=== PATIENT | female | born 1930 | race Caucasian/White ===

== ENCOUNTER 2016-12-31 11:19 | Inpatient (IN) | payer OTHER ==
--- NOTE | 2016-12-31 11:21 | EDPHY ---
H & P HPI/ROS: CHIEF COMPLAINT: Fall. HISTORY OF PRESENT ILLNESS: The patient is an 86-year-old female with history of CVA and hypertension who presents via EMS after falling. She does not remember much about what happened and does not remember why she fell. She does not think that she fainted. She was too weak to her herself up. She did not hit her head. She has a walker but apparently does not always use it. According to her daughter, who provided some of the history, she fell earlier this week and seems to be falling with more frequency. She denies chest pain, back pain, abdominal pain, recent sickness, diarrhea, constipation, urinary symptoms. She is anticoagulated on Eliquis. She lives with a granddaughter and has help twice weekly. REVIEW OF SYSTEMS: A ten point review of systems was performed and is negative with the exception of the items mentioned in the HPI. Source: Patient Exam Limitations: No limitations - Medical/Surgical History Other PMH: 1. Hypertension. 2. Hyponatremia. 3. CVA. 4. Atrial fibrillation. 5. Osteoarthritis. 6. Carotid artery stenosis. 7. Cataract surgery. - Social History Additional Social History: Nonsmoker, no alcohol use. Lives with granddaughter. - Physical Exam Exam: General Appearance: Alert. Vital signs reviewed. BP 198/102. Head: Normocephalic, atraumatic. Eyes: Pupils equal and round, no conjunctival injection, no discharge. Anicteric. ENT, Mouth: Mucous membranes are moist, no oropharyngeal erythema or edema. Neck: No lymphadenopathy, supple. Nontender to palpation over the cervical spine. No pain with ROM of neck/head. Respiratory: Lungs are clear to auscultation; no wheezes, rales, or rhonchi. Breath sounds distant. Thoracic: Pacer pocket normal-appearing. No rib tenderness or crepitus. Cardiovascular: Regular rate and rhythm; no murmur, rub, or gallop. Gastrointestinal: Abdomen is soft and nontender, no masses or organomegaly, bowel sounds normal. Skin: Warm and dry, no rashes on exposed skin, normal color. Back: Nontender to palpation over the thoracolumbar spine. No CVAT. Extremities: No lower extremity edema, no calf tenderness or swelling. 4th and 5th digits of right hand held in permanent flexion. Neurological: Alert and oriented to person, place, year. Moving all four extremities easily and equally. No pronator drift. PERRL EOMI. Facial expressions symmetric. Tongue midline. Ambulated with walker. Psychiatric: Normal affect. Constitutional: Initial Vital Signs Temperature (C) 37.2 C 12/31/16 11:26 Heart Rate 76 12/31/16 11:26 Respiratory Rate 16 12/31/16 11:26 Blood Pressure 202/104 H 12/31/16 11:26 O2 Sat (%) 93 12/31/16 11:26 O2 Delivery Mode Room Air Allergies/Adverse Reactions: escitalopram oxalate [From Lexapro] Allergy (Intermediate, Verified 01/28/14 08: 43) NAUSEA metoprolol [Metoprolol] Allergy (Intermediate, Verified 01/28/14 08:43) NAUSEA Home Medications: Medication Instructions Recorded Irbesartan/Hydrochlorothiazide 1 each PO DAILY 10/01/13 [Avalide 300-25 mg Tablet] Mirtazapine [Remeron] 30 mg PO DAILY 10/01/13 Omeprazole [Prilosec 20 mg] 20 mg PO DAILY 10/01/13 Potassium Cl [Klor-Con 20 meq (RX)] 20 meq PO DAILY 10/01/13 Pramipexole Di-HCl [Pramipexole 0.25 mg PO DAILY 10/01/13 Dihydrochloride] Bystolic 12/31/16 Eliquis 12/31/16 Medical Decision Making - Diagnostics EKG Interpretation: 12 lead EKG is interpreted in Trace master View by emergency department physician. Imaging Results: Imaging Impressions Head CT 12/31/16 11:49 Impression: 1. Negative. No acute intracranial hemorrhage or skull fracture. 2. Progressive atrophy and white matter disease since 2008. Comment: Findings discussed with Emergency Department physician, Alee Herrera at 1249 hours 12/31/2016. Imaging: Discussed imaging studies w/ order desk caller Radiologist ED Course/Re-evaluation: 86-year-old anticoagulated female presents after falling this morning. She has a history of hypertension and is hypertensive at 203/120. She also has a history of hyponatremia. Her daughter reports that she has had increased difficulty walking with her walker recently. An IV was established and labs ordered. Head CT ordered. 1300: Head CT results conveyed to me as negative for bleed or skull fracture by radiology. I independently reviewed the patient's CT on the PACS system. Please see Imaging section for radiologist report. Her daughter brought in the patient's medication box and the compartments for the past two days and for this morning are full. She has not taken any of her prescribed medications. She was given her Bystolic PO and her avapro PO in the ED. She was able to ambulate using a walker in the emergency department. Labs reviewed. No hyponatremia. Neuro exam is nonfocal. I do not suspect acute CVA but am concerned about persistent hypertension. 1322: Reassessed patient. Discussed results of imaging study. She is feeling well. Case Management will consult with the patient and family to ensure a proper disposition is reached. Blood pressures remained high in the emergency department. She was given her Bystolic and her Avapro, as above. She has missed her medications for the last 3 days. Her daughter tells me that she has become quite forgetful, forgets to use her walker and apparently is not taking her medications. She lives with a granddaughter. She has helped twice a week but it seems that she might need a higher level of care. 1437: Consulted with Dimple from Case Management. She reports that after talking to the patient's family and caregivers she has been falling more over the past week and likely needs a higher level of care than she is currently receiving. The patient would like to be admitted to "help her get stronger". 1450: Consulted with Dr. Barkley, hospitalist. He accepts admission. Differential Diagnosis: I considered a differential diagnosis including but not limited to hypoglycemia , infectious process, electrolyte abnormality, head injury and intoxicants. - Data Points Laboratory Results: Laboratory Results 12/31/16 11:24 12/31/16 11:24 12/31/16 12/31/16 12/31/16 13:20 11:24 11:24 WBC 6.85 10^3/uL 10^3/uL (3.80-9.50) RBC 4.71 10^6/uL 10^6/uL (4.18-5.33) Hgb 16.1 g/dL g/dL (12.6-16.3) Hct 44.8 % % (38.0-47.0) MCV 95.1 fL fL (81.5-99.8) MCH 34.2 pg H pg (27.9-34.1) MCHC 35.9 g/dL g/dL (32.4-36.7) RDW 13.4 % % (11.5-15.2) Plt Count 211 10^3/uL 10^3/uL (150-400) MPV 10.8 fL fL (8.7-11.7) Neut % (Auto) 69.3 % % (39.3-74.2) Lymph % (Auto) 21.0 % % (15.0-45.0) [place] % (Auto) 7.7 % % (4.5-13.0) Eos % (Auto) 1.0 % % (0.6-7.6) Baso % (Auto) 0.6 % % (0.3-1.7) Nucleat RBC Rel Count 0.0 % % (0.0-0.2) Absolute Neuts (auto) 4.74 10^3/uL 10^3/uL (1.70-6.50) Absolute Lymphs (auto) 1.44 10^3/uL 10^3/uL (1.00-3.00) Absolute Monos (auto) 0.53 10^3/uL 10^3/uL (0.30-0.80) Absolute Eos (auto) 0.07 10^3/uL 10^3/uL (0.03-0.40) Absolute Basos (auto) 0.04 10^3/uL 10^3/uL (0.02-0.10) Absolute Nucleated RBC 0.00 10^3/uL 10^3/uL (0-0.01) Immature Gran % 0.4 % % (0.0-1.1) Immature Gran # 0.03 10^3/uL 10^3/uL (0.00-0.10) Sodium 139 mEq/L mEq/L (134-144) Potassium 4.4 mEq/L mEq/L (3.5-5.2) Chloride 103 mEq/L mEq/L (97-110) Carbon Dioxide 24 mEq/l mEq/l (22-31) Anion Gap 12 mEq/L mEq/L (8-16) BUN 16 mg/dL mg/dL (7-23) Creatinine 0.9 mg/dL mg/dL (0.6-1.0) Estimated GFR 60 Glucose 105 mg/dL H mg/dL (70-100) Calcium 10.0 mg/dL mg/dL (8.5-10.4) Urine Color YELLOW Urine Appearance CLEAR Urine pH 6.0 (5.0-7.5) Ur Specific [place] 1.015 (1.002-1.030) Urine Protein NEGATIVE (NEGATIVE) Urine Ketones 1+ H (NEGATIVE) Urine Blood NEGATIVE (NEGATIVE) Urine Nitrate NEGATIVE (NEGATIVE) Urine Bilirubin NEGATIVE (NEGATIVE) Urine Urobilinogen NEGATIVE EU EU (0.2-1.0) Ur Leukocyte Esterase 1+ H (NEGATIVE) Urine RBC 1-3 /hpf /hpf (0-3) Urine WBC 10-15 /hpf H /hpf (0-3) Ur Epithelial Cells TRACE /lpf /lpf (NONE-1+) Urine Mucus TRACE /lpf /lpf (NONE-1+) Ur Culture Indicated? INDICATED H (NI) Urine Glucose NEGATIVE (NEGATIVE) Departure - Departure Disposition: [facility] Inpatient Acute Clinical Impression: Generalized weakness, Multiple falls, Hypertensive urgency Failure to thrive Qualifiers: Failure to thrive age range: in adult Qualified Code(s): R62.7 - Adult failure to thrive Condition: Fair Report Scribed for: Alee Herrera Report Scribed by: Kale Altman Date of Report: 12/31/16 Time of Report: 11:30 Physician Review and Approval Statement: 12/31/16 11:20 Portions of this note were transcribed by the medical dosimetrist. I, Dr. Alee Herrera, personally performed the history, physical exam, and medical decision- making; and confirmed the accuracy of the information in the transcribed note.
--- NOTE | 2016-12-31 11:29 | CPEKG ---
Heart Rate: 82 RR Interval: 732 QRSD Interval: 130 QT Interval: 408 QTC Interval: 477 QRS [place]: -76 T Wave [place]: 111 EKG Severity - ABNORMAL ECG - EKG Impression: AFIB/FLUTTER AND VENTRICULAR-PACED RHYTHM Electronically Signed By: Alee Herrera 31-Dec-2016 15:43:24
[2016-12-31 11:54] LABS: % IMMATURE GRANULYOCYTES 0.4 % (0.0-1.1); ABSOLUTE IMMATURE GRANULOCYTES 0.03 10^3/uL (0.00-0.10); ADD DIFF? NO; ADD MORPH? NO; ADD SCAN? NO; ATYPICAL LYMPHOCYTE FLAG 20 (0-99); FRAGMENT RBC FLAG 0 (0-99); HEMATOCRIT 44.8 % (38.0-47.0); HEMOGLOBIN 16.1 g/dL (12.6-16.3); LEFT SHIFT FLG 0 (0-99); LIPEMIA HEMOLYSIS FLAG 90 (0-99); MEAN CELL HEMOGLOBIN 34.2 pg (27.9-34.1); MEAN CELL HEMOGLOBIN CONCENTR. 35.9 g/dL (32.4-36.7); MEAN CELL VOLUME 95.1 fL (81.5-99.8); MEAN PLATELET VOLUME 10.8 fL (8.7-11.7); PLATELET CLUMPS FLAG 0 (0-99); PLATELET COUNT 211 10^3/uL (150-400); RED BLOOD CELL COUNT 4.71 10^6/uL (4.18-5.33); RED CELL DISTRIBUTION WIDTH 13.4 % (11.5-15.2)
[2016-12-31 11:59] LABS: ANION GAP 12 mEq/L (8-16); CARBON DIOXIDE 24 mEq/l (22-31); CHLORIDE 103 mEq/L (97-110); CREATININE 0.9 mg/dL (0.6-1.0); GLOMERULAR FILTRATION RATE 60; GLUCOSE 105 mg/dL (70-100); POTASSIUM 4.4 mEq/L (3.5-5.2); SODIUM 139 mEq/L (134-144)
[2016-12-31] MEDS ORDERED: IRBESARTAN 150 MG TAB PO SCH (12:30)
[2016-12-31 13:30] LABS: COLOR YELLOW; LEUKOCYTE ESTERASE,URINE 1+ (NEGATIVE); NITRITE,URINE NEGATIVE (NEGATIVE)
[2016-12-31 13:36] LABS: MUCUS TRACE /lpf (NONE-1+)
[2016-12-31] MEDS ORDERED: LABETALOL HCL 50 MG/10 ML SYR IVP ONE (15:34)
[2016-12-31] MEDS ORDERED: ONDANSETRON 4 MG/2 ML VIAL IVP PRN (15:43)
[2016-12-31] MEDS ORDERED: ACETAMINOPHEN 325 MG TAB PO PRN (15:43)
[2016-12-31] MEDS ORDERED: NS 1,000 ML IV SCH (15:45)
--- NOTE | 2016-12-31 15:53 | PDGENHP ---
History and Physical History and Physical: HISTORY AND PHYSICAL CC: Brought in to the ER after a fall unable to get up at home HISTORY: This patient is an 86-year-old woman who lives in a private home. She has a history of falls and fracture in the past. Her daughter who is here reports that the patient has had more falls and fell a couple weeks ago. This morning at 3 o'clock the granddaughter who lives with the patient arrived home from work and found the patient awake but on the floor and unable to get up. She assisted the patient up to her feet and back to bed. There do not appear to be any injury or illness that the granddaughter could detect. They both went to asleep but when the granddaughter got up at 7 o'clock this morning she again found the patient on the floor in the kitchen. Again did not seem to be symptoms of illness and there was not evidence of injury but the patient was unable to get off the floor. The patient was then brought into the emergency room where she is being evaluated. The patient herself has poor memory and so a lot of this history I am getting from the daughter who is here with her. The patient does not recall feeling ill or sick in any way, having palpitations chest pain lightheadedness dizziness. However she cannot recall at all how she ended up on the floor neither these 2 occasions today. She denies any discomfort at all does not feel dizzy or nauseous. As far as the daughter knows the patient has had no symptoms of illness and nothing reported by the granddaughter. The patient's pill counter boxes have come here with her today. Looking at them with the daughter is clear that the patient has not taken any medications for the last 3 days including today. In terms of her medication list there are some cardiac medicines. She also has an antidepressant which is being dosed reduced gradually over the last several months. She stop Paxil a few months ago as well. Neither the patient or daughter have noticed any worsening depression, anxiety, insomnia, or appetite. Her daughter does mention that she thinks the patient's urine has looked dark for the last couple of days as she saw some in the commode ROS: A comprehensive 10 system review is attempted and revealed no other significant findings, but given the patient's memory and this may be less accurate than desired. PAST MEDICAL HISTORY: Gait instability with falls and hip fracture Osteoporosis Dementia gradually worsening Atrial fibrillation and flutter, status post pacemaker Diastolic dysfunction of left ventricle Left ventricular hypertrophy Mitral regurgitation Pulmonary hypertension Systemic hypertension Depression Osteoarthritis Question of stroke FAMILY MEDICAL HISTORY: Her parents both at fairly old ages in this late 70s in the 90s No other illness she is aware of SOCIAL HISTORY: She lives in a private home with her granddaughter who is a 17-year-old. The granddaughter works during the day and into the night. Patient is therefore alone a lot of the time. She has no use of alcohol tobacco or street drugs. She does use a walker. She does have meals brought in by an outside agency. As mentioned above it appears that there are medication compliance issues, and she does not appear to have taken any of her medicines for the last 3 days at home. She is very emphatic that she wants to do not resuscitate order and talking to her and her daughter is very clear that they both understand what this order means and when and why it would be used or not used. MEDICATIONS: I am waiting for her medicine list to be reconciled by clinical pharmacist. There is beta-alina, no anticoagulant, but in anti-platelet agent and antidepressant are present on the list she brings in. Also there is lisinopril. Again she appears to not taking these for a few days. She has no medicine allergies PHYSICAL EXAMINATION: Vital Signs: Blood pressures are severely elevated both systolic and diastolic , and she has good rate control for her AFib otherwise unremarkable Chemistry Research Assistant: rate controlled atrial flutter in the 70s. Examination: General: alert; she does not know the day of the week the date of the month or the year. She knows she is in [place] and that Sergio anvarro is the president. She knows why she is here and generally is fairly well oriented other than time. 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 Nothing that looks like a stroke. ASSESSMENT: 1- REPEATED FALLS AT HOME OF UNCERTAIN NATURE THE PATIENT DOES NOT RECALL THEM, 2 FALLS TODAY 2- SEVERE GAIT INSTABILITY 3- UNCONTROLLED SEVERE HYPERTENSION, WITHOUT HAVING TAKEN ANY MEDICINE FOR AT LEAST 3 DAYS 4- QUESTION OF POSSIBLE DEHYDRATION WITH CONCENTRATED SOUND URINE AT HOME 5- QUESTION OF POSSIBLE URINARY TRACT INFECTION WITH PYURIA AND WORSENING BALANCE AND MEMORY AT HOME THOUGH NO URINARY SYMPTOMS DIRECTLY 6- KNOWN CARDIAC DISEASE INCLUDES RATE CONTROLLED ATRIAL FLUTTER, PACEMAKER IN PLACE, MITRAL REGURGITATION, LVH AND DIASTOLIC DYSFUNCTION 7- KNOWN HISTORY OF PULMONARY HYPERTENSION 8- INABILITY TO SAFELY CARE FOR HERSELF AT HOME WITH KNOWN DEMENTIA, FREQUENT FALLS, NOT TAKING HER MEDICINES, UNCONTROLLED HYPERTENSION, ETC PLANS: -patient will be admitted to the hospital on inpatient basis as will be not safe to send her home within 48 hours -Will have her pacer interrogated to make sure that there was no cardiac cause of any syncope -will hydrate her gently, will check orthostatic vital signs in the morning -resume her oral blood pressure medicines as usual and add other medicine as needed for adequate control of blood pressure -fall risk precautions, physical occupational therapy -given her pyuria and her worsening overall function at home will give empiric antibiotic while waiting for culture though she may not have infection as there is no bladder symptoms -case management evaluation; the daughter is feeling like the patient will need a higher level of supervision and certainly this is likely at least in the short run. Could be hope to that with hydration, adequate control of blood pressure, treatment of possible urine infection, and physical therapies she might be able to do better. However clearly living alone may be prohibitive in terms of safety. -DNR per the patient's wishes -pharmacologic DVT prophylaxis here I have reviewed the patient's case in detail with Dr. Froylan Hendricks I have reviewed the patient's past medical records as part of this assessment, including previous hospital admission records and outpatient laboratory data
[2016-12-31] MEDS: LABETALOL HCL 50 MG/10 ML SYR IVP PRN (17:13)
[2016-12-31] MEDS: CEFUROXIME AXETIL 250 MG TAB PO SCH (20:32)
[2016-12-31] MEDS: MIRTAZAPINE 30 MG TAB PO SCH (20:32)
[2016-12-31] MEDS: POTASSIUM CL 20 MEQ TAB PO SCH (20:32)
[2016-12-31] MEDS: PRAVASTATIN SODIUM 20 MG TAB PO SCH (20:33)
[2016-12-31] MEDS: APIXABAN 2.5 MG TAB PO SCH (20:33)
[2017-01-01 06:11] LABS: % IMMATURE GRANULYOCYTES 0.3 % (0.0-1.1); ABSOLUTE IMMATURE GRANULOCYTES 0.02 10^3/uL (0.00-0.10); ADD DIFF? NO; ADD MORPH? NO; ADD SCAN? NO; ATYPICAL LYMPHOCYTE FLAG 0 (0-99); FRAGMENT RBC FLAG 0 (0-99); HEMATOCRIT 38.9 % (38.0-47.0); HEMOGLOBIN 13.2 g/dL (12.6-16.3); LEFT SHIFT FLG 0 (0-99); LIPEMIA HEMOLYSIS FLAG 90 (0-99); MEAN CELL HEMOGLOBIN 31.7 pg (27.9-34.1); MEAN CELL HEMOGLOBIN CONCENTR. 33.9 g/dL (32.4-36.7); MEAN CELL VOLUME 93.5 fL (81.5-99.8); MEAN PLATELET VOLUME 10.4 fL (8.7-11.7); PLATELET CLUMPS FLAG 10 (0-99); PLATELET COUNT 191 10^3/uL (150-400); RED BLOOD CELL COUNT 4.16 10^6/uL (4.18-5.33); RED CELL DISTRIBUTION WIDTH 13.2 % (11.5-15.2)
[2017-01-01 07:11] LABS: ANION GAP 9 mEq/L (8-16); CALCIUM 9.5 mg/dL (8.5-10.4); CARBON DIOXIDE 24 mEq/l (22-31); CHLORIDE 105 mEq/L (97-110); CREATININE 0.9 mg/dL (0.6-1.0); GLOMERULAR FILTRATION RATE 60; GLUCOSE 87 mg/dL (70-100); POTASSIUM 3.9 mEq/L (3.5-5.2); SODIUM 138 mEq/L (134-144)
[2017-01-01] MEDS ORDERED: HYDROCHLOROTHIAZIDE 25 MG TAB PO SCH (09:00)
[2017-01-01] MEDS ORDERED: ENOXAPARIN 40 MG/0.4 ML SYR SC SCH (09:00)
[2017-01-01] MEDS: HYDROCHLOROTHIAZIDE 12.5 MG CAP PO SCH (09:54)
[2017-01-01] MEDS: IRBESARTAN 150 MG TAB PO SCH (09:54)
[2017-01-01] MEDS: buPROPion XL 150 MG TAB PO SCH (09:54)
[2017-01-01] MEDS: PRAMIPEXOLE 0.25 MG TAB PO SCH (09:54)
[2017-01-01] MEDS: NEBIVOLOL HCL 5 MG TAB PO SCH (09:54)
[2017-01-01] MEDS: APIXABAN 2.5 MG TAB PO SCH ×2 (09:55→19:33)
[2017-01-01] MEDS: PANTOPRAZOLE SODIUM 40 MG TAB PO SCH (09:55)
[2017-01-01] MEDS: CEFUROXIME AXETIL 250 MG TAB PO SCH ×2 (09:55→19:33)
--- NOTE | 2017-01-01 09:57 | HOSPPROG ---
Hospitalist Progress Note Assessment/Plan: Patient is an 86 y/o who lives independently and has been falling. The grand daughter who lives w the patient found her on the floor and unable to get up. She appeared not to be injured and was assisted back to bed. The patient got out of bed again and fell. She was brought to the ER for further evaluation. Also, it's not clear the patient has been taking her medications. She stopped Paxil a few months ago (this was weaned off). Today is my first encounter with the patient, chart reviewed. *gait instability w repeated falls patient doesn't recall them CT of head shows atrophy but nothing acute PT and OT to see *Uncontrolled HTN resume home medications *Dehydration -eating and drinking well *Aflutter/atrial fibrillation/pacer pacer interrogated/sensing and capturing on Eliquis hx of LVH *concern for UTI started on treatment/Ceftin bid *pulmonary htn *concern of patient being unable to care fo herself -has underlying dementia -has residual symptoms from a previous stroke *Code status -DNR *Plan: evaluation by PT, OT and ST/SNF vs going home with home care Subjective: Haydee has no complaints. Feeling well. Objective: Vital Signs Temp Pulse Resp BP Pulse Ox 36.3 C 84 14 150/91 H 93 01/01/17 07:55 01/01/17 07:55 12/31/16 23:46 01/01/17 07:55 01/01/17 07:55 Laboratory Results 01/01/17 05:45 01/01/17 05:45 12/31/16 01/01/17 01/02/17 05:59 05:59 05:59 Output Total 350 Balance -350 - Physical Exam Constitutional: no apparent distress, appears nourished, not in pain Eyes: PERRL Ears, Nose, Mouth, Throat: hearing normal Cardiovascular: regular rate and rhythym, no murmur, rub, or gallop Respiratory: no respiratory distress Gastrointestinal: normoactive bowel sounds Skin: warm Musculoskeletal: no muscle tenderness Neurologic: AAOx3, other (answers questions appropriately, but slow to answer), No facial droop Psychiatric: not encephalopathic, thought process linear, flat affect ICD10 Worksheet Patient Problems: Problems Problem Status Onset Failure to thrive Acute Generalized weakness Acute Hypertensive urgency Acute Multiple falls Acute Afib - Atrial fibrillation Active Renal failure Acute
[2017-01-01] MEDS: PRAVASTATIN SODIUM 20 MG TAB PO SCH (19:33)
[2017-01-01] MEDS: MIRTAZAPINE 30 MG TAB PO SCH (19:33)
[2017-01-01] MEDS: POTASSIUM CL 20 MEQ TAB PO SCH (19:33)
[2017-01-01] MEDS: LABETALOL HCL 50 MG/10 ML SYR IVP PRN (21:20)
[2017-01-02] MEDS: PANTOPRAZOLE SODIUM 40 MG TAB PO SCH (10:03)
[2017-01-02] MEDS: buPROPion XL 150 MG TAB PO SCH (10:04)
[2017-01-02] MEDS: HYDROCHLOROTHIAZIDE 12.5 MG CAP PO SCH (10:04)
[2017-01-02] MEDS: PRAMIPEXOLE 0.25 MG TAB PO SCH (10:04)
[2017-01-02] MEDS: NEBIVOLOL HCL 5 MG TAB PO SCH (10:05)
[2017-01-02] MEDS: APIXABAN 2.5 MG TAB PO SCH ×2 (10:05→20:22)
[2017-01-02] MEDS: CEFUROXIME AXETIL 250 MG TAB PO SCH (10:05)
[2017-01-02] MEDS: IRBESARTAN 150 MG TAB PO SCH (10:06)
--- NOTE | 2017-01-02 11:55 | HOSPPROG ---
Hospitalist Progress Note Assessment/Plan: Patient is an 86 y/o who lives independently and has been falling. The grand daughter who lives w the patient found her on the floor and unable to get up. She appeared not to be injured and was assisted back to bed. The patient got out of bed again and fell. She was brought to the ER for further evaluation. Also, it's not clear the patient has been taking her medications. She stopped Paxil a few months ago (this was weaned off). Today is my first encounter with the patient, chart reviewed. *gait instability w repeated falls patient doesn't recall them CT of head shows atrophy but nothing acute PT and OT to see *Uncontrolled HTN resume home medications may need increase *Dehydration -eating and drinking well *Aflutter/atrial fibrillation/pacer pacer interrogated/sensing and capturing on Eliquis hx of LVH *concern for UTI started on treatment/Ceftin bid cx negative will DC *pulmonary htn *concern of patient being unable to care fo herself -has underlying dementia -has residual symptoms from a previous stroke *Code status -DNR *Plan: evaluation by PT, OT and ST/SNF vs going home with home care plan for possible DC to [facility] in the am Subjective: Feeling ok. Tired, no other issues. Not feeling strong. Objective: Vital Signs Temp Pulse Resp BP Pulse Ox 37.0 C 99 16 122/84 H 94 01/02/17 11:33 01/02/17 11:33 01/02/17 11:33 01/02/17 11:33 01/02/17 11:33 Laboratory Results 01/01/17 05:45 01/01/17 05:45 01/01/17 01/02/17 01/03/17 05:59 05:59 05:59 Output Total 350 0 Balance -350 0 - Physical Exam Constitutional: no apparent distress, appears nourished, not in pain Eyes: PERRL, anicteric sclera, EOMI Ears, Nose, Mouth, Throat: moist mucous membranes, hearing normal, ears appear normal Cardiovascular: No JVD, No tachycardia, No edema Respiratory: no respiratory distress, no rales or rhonchi, reduced air movement Gastrointestinal: No tenderness, No ascites, No guarding Skin: warm, normal color, No erythema Musculoskeletal: muscular tenderness, abnormal gait, generalized weakness Psychiatric: not anxious, poor insight, poor judgement, poor memory ICD10 Worksheet Patient Problems: Problems Problem Status Onset Afib - Atrial fibrillation Active Renal failure Acute Generalized weakness Acute Failure to thrive Acute Multiple falls Acute Hypertensive urgency Acute
[2017-01-02] MEDS: MIRTAZAPINE 30 MG TAB PO SCH (20:22)
[2017-01-02] MEDS: POTASSIUM CL 20 MEQ TAB PO SCH (20:22)
[2017-01-02] MEDS: PRAVASTATIN SODIUM 20 MG TAB PO SCH (20:22)
[2017-01-03] MEDS: APIXABAN 2.5 MG TAB PO SCH (08:29)
[2017-01-03] MEDS: PRAMIPEXOLE 0.25 MG TAB PO SCH (08:29)
[2017-01-03] MEDS: HYDROCHLOROTHIAZIDE 12.5 MG CAP PO SCH (08:29)
[2017-01-03] MEDS: buPROPion XL 150 MG TAB PO SCH (08:29)
[2017-01-03] MEDS: NEBIVOLOL HCL 5 MG TAB PO SCH (08:29)
[2017-01-03] MEDS: IRBESARTAN 150 MG TAB PO SCH (08:29)
[2017-01-03] MEDS: PANTOPRAZOLE SODIUM 40 MG TAB PO SCH (08:30)
[2017-01-03 08:32] VITALS: RESP 16
--- NOTE | 2017-01-03 09:42 | PDIAF ---
- Diagnosis Diagnosis: weakness Code Status: Do Not Resuscitate - Medication Management Discharge Medications: Medications to Continue on Transfer Apixaban [Eliquis] 2.5 mg PO BID 12/31/16 [Last Taken Unknown] Bupropion HCl [Wellbutrin Xl] 150 mg PO DAILY 12/31/16 [Last Taken Unknown] Irbesartan/Hydrochlorothiazide [Irbesartan-Hctz 150-12.5 mg Tb] 1 each PO DAILY 12/31/16 [Last Taken 12/31/16] Mirtazapine [Remeron] 60 mg PO HS 12/31/16 [Last Taken Unknown] Nebivolol HCl [Bystolic 5 mg (*)] 5 mg PO DAILY 12/31/16 [Last Taken 12/31/16] Omeprazole [Prilosec 20 mg] 20 mg PO DAILY 12/31/16 [Last Taken Unknown] Potassium Cl [Klor-Con 20 meq (*)] 20 meq PO HS 12/31/16 [Last Taken Unknown] Pramipexole Di-HCl [Pramipexole Dihydrochloride] 0.25 mg PO DAILY 12/31/16 [ Last Taken Unknown] Pravastatin Sodium 20 mg PO HS 12/31/16 [Last Taken Unknown] Acetaminophen [Tylenol 325mg (*)] 650 mg PO Q4HRS PRN #0 tab 01/03/17 [Last Taken Unknown] Discharge Medications: Refer to the Discharge Home Medication list for PRN reason. PICC Care - Routine: N/A - Orders Services needed: Registered Nurse, Physical Therapy, Occupational Therapy - Follow Up Care Current Providers and Referrals: Cesar Cohen MD [Primary Care Provider] - As per Instructions
[2017-01-03 10:55] VITALS: BP 146/82; PULSE 82; TEMP 97.4; O2SAT 94
--- NOTE | 2017-01-03 19:51 | GDS ---
[f rep st] DISCHARGE SUMMARY DISCHARGE DIAGNOSES: 1. Generalized weakness. 2. Gait instability with mechanical fall. 3. Uncontrolled hypertension. 4. Dehydration. 5. History of atrial flutter. 6. History of pulmonary hypertension. 7. Adult failure to thrive. STUDIES AND PROCEDURES DONE: CT of the head. PHYSICAL EXAMINATION: GENERAL: The patient is alert. VITAL SIGNS: Afebrile 36.3. Pulse is 82, r espiratory rate 16. Blood pressure is 146/82. She is saturating 94% on room air. I have seen and evaluated the patient on the day of discharge. HOSPITAL COURSE: The patient is an 86-year-old female, who lives independently, presented to the ergency room after suffering multiple mechanical falls. She was evaluated and diagnosed with: 1. Gait instability with repeat falls. During this hospital course the patient was consulted on by Physical therapy and Occupational therapy. It was felt that it was appropriate for her to go to [facility] for rehabilitation and strengthening. 2. Uncontrolled hypertension. Her home medications have been resumed and her blood pressure is sta ble. She may need increased antihypertensive medications in the outpatient setting which she will d efer and follow up with her primary care physician. 3. Dehydration. This has resolved with fluid hydration. The patient is currently eating and drink ing well and does not appear to be dehydrated any longer. 4. History of atrial flutter. She does have a pacemaker in place. I have continued her Eliquis an d no further intervention is warranted. 5. Adult failure to thrive. The patient again will be discharged to rehabilitation for further corie luation and strengthening. I have reviewed the patient's care with Dr. Tayo Barkley at the time of d isposition. DISCHARGE MEDICATIONS: Please refer to EMR form. I have not adjusted the patient's previously pres cribed home medications to the best of my knowledge. Followup will be with her primary care michael coppola, Dr. Cesar Cohen. I spent greater than 35 minutes in the care, coordination, and management of t he patient's disposition. /[id number]/MODL
== END 2017-01-03 12:23 | DRG 641 ==
LOC: EDUNIT# → F3E 17:50
PROVIDERS: ADMIT Internal Medicine; ATTEND Internal Medicine
DX: R62.7 Adult failure to thrive (principal); E86.0 Dehydration; I10 Essential (primary) hypertension; Z91.81 History of falling; R29.6 Repeated falls; I48.92 Unspecified atrial flutter; R26.9 Unspecified abnormalities of gait and mobility; M81.0 Age-related osteoporosis without current pathological fracture; F03.90 Unspecified dementia, unspecified severity, without behavioral disturbance, psychotic disturbance, mood disturbance, and anxiety; I34.0 Nonrheumatic mitral (valve) insufficiency; Z95.0 Presence of cardiac pacemaker; Z66 Do not resuscitate
CPT/HCPCS: 92523-GN; 97116-GP; 97161-GP; 97166-GO; 97535-GO; G8978-GP-CJ; G8979-GP-CI; G8987-GO-CK; G8988-GO-CJ; G9168-GN-CK; G9169-GN-CJ

== ENCOUNTER → 2017-02-11 | Outpatient (CLI) | payer OTHER | LOC: FIMAGING 15:42 | PROVIDERS: ATTEND Internal Medicine | DX: Z11.1 Encounter for screening for respiratory tuberculosis (principal); R76.11 Nonspecific reaction to tuberculin skin test without active tuberculosis; I51.7 Cardiomegaly; I25.10 Atherosclerotic heart disease of native coronary artery without angina pectoris ==

== ENCOUNTER 2018-06-14 15:12 | Emergency (ER) | payer OTHER ==
--- NOTE | 2018-06-14 15:49 | EDPHY ---
H & P Stated Complaint: [facility] fall Time Seen by Provider: 06/14/18 15:42 HPI/ROS: CHIEF COMPLAINT: Mechanical fall, weakness HISTORY OF PRESENT ILLNESS: The patient has a history of dementia and is referred to the emergency department from her senior care. She reportedly had a fall. The patient does not believe she struck her head. The patient is anticoagulated for atrial fibrillation according to her records. The patient currently denies any headache. Her history of dementia does limit our ability to obtain meaningful history. The patient denies any fever, cough or congestion. She denies any acute painful complaints. REVIEW OF SYSTEMS: A comprehensive 10 point review of systems is otherwise negative aside from elements mentioned in the history of present illness. Source: Patient Exam Limitations: No limitations - Personal History Tetanus Vaccine Date: 2001 - Medical/Surgical History Hx Asthma: No Hx Chronic Respiratory Disease: No Hx Diabetes: No Hx Cardiac Disease: Yes Hx Renal Disease: No Hx Cirrhosis: No Hx Alcoholism: No Hx HIV/AIDS: No Hx Splenectomy or Spleen Trauma: No Other PMH: Hypertension, Hyponatremia,CVA, Atrial fibrillation, paced, Osteoarthritis, Carotid artery stenosis, Cataract surgery, anemia, dementia, MDD , RLL, heart failure, GERD, OA, - Social History Smoking Status: Never smoked - Physical Exam Exam: General Appearance: Elderly female, no acute distress Head: Atraumatic Eyes: Pupils equal, round, reactive ENT, Mouth: No hemotympanum, no oral trauma Neck: Nontender, trachea midline Respiratory: No chest wall tender, subcutaneous air, lungs clear bilaterally Cardiovascular: Regular rate and rhythm Abdomen: Abdomen is soft and nontender, pelvis stable Skin: No lacerations, No abrasion Back: No midline T/L/S pain Extremities: Nontender, full range of motion Neurological: Alert and oriented x1, globally weak. Constitutional: Initial Vital Signs Temperature (C) 36.6 C 06/14/18 15:17 Heart Rate 76 06/14/18 15:17 Respiratory Rate 16 06/14/18 15:17 Blood Pressure 163/96 H 06/14/18 15:17 O2 Sat (%) 94 06/14/18 15:17 O2 Delivery Mode Room Air Allergies/Adverse Reactions: escitalopram oxalate [From Lexapro] Allergy (Intermediate, Verified 01/28/14 08: 43) NAUSEA metoprolol [Metoprolol] Allergy (Intermediate, Verified 01/28/14 08:43) NAUSEA Home Medications: Medication Instructions Recorded Apixaban [Eliquis] 2.5 mg PO BID 12/31/16 Bupropion HCl [Wellbutrin Xl] 150 mg PO DAILY 12/31/16 Irbesartan/Hydrochlorothiazide 1 each PO DAILY 12/31/16 [Irbesartan-Hctz 150-12.5 mg Tb] Mirtazapine [Remeron] 60 mg PO HS 12/31/16 Nebivolol HCl [Bystolic 5 mg (*)] 5 mg PO DAILY 12/31/16 Omeprazole [Prilosec 20 mg] 20 mg PO DAILY 12/31/16 Potassium Cl [Klor-Con 20 meq (*)] 20 meq PO HS 12/31/16 Pramipexole Di-HCl [Pramipexole 0.25 mg PO DAILY 12/31/16 Dihydrochloride] Pravastatin Sodium 20 mg PO HS 12/31/16 Acetaminophen [Tylenol 325mg (*)] 650 mg PO Q4HRS PRN #0 tab 01/03/17 Medical Decision Making - Diagnostics EKG Interpretation: EKG: Complete interpretation has been separately recorded in the [facility] archive. Summary impression: Paced rhythm, rate 82, underlying atrial fibrillation ED Course/Re-evaluation: The patient presents to the ED for reported global weakness which appears to be increased after a fall earlier today. While the patient had no obvious signs of head trauma she is 88, has a history of dementia and is anticoagulated. A head CT scan was performed to assess for intracranial hemorrhage. The patient is hemodynamically stable upon arrival. She is in a paced rhythm with a rate of 82. The patient has no midline cervical spine tenderness. She has a benign abdominal examination. She has no respiratory complaints. Aside from her dementia the patient is neurologically intact. The patient's head CT scan demonstrates no evidence of an intracranial hemorrhage or fracture. The patient's laboratory studies are unremarkable. She denies any urinary complaints. The patient has been medically cleared for evidence of a significant injury or metabolic derangement. She has no evidence of an arrhythmia or hemodynamic instability. There is no evidence of an anemia The patient will be discharged back to her senior care in stable condition. Differential Diagnosis: Differential diagnosis considered includes intracranial hemorrhage, dehydration , metabolic abnormality, skull fracture, arrhythmia, critical anemia - Data Points Laboratory Results: Laboratory Results 06/14/18 15:00 06/14/18 15:00 06/14/18 06/14/18 15:00 15:00 WBC 9.45 10^3/uL 10^3/uL (3.80-9.50) RBC 4.56 10^6/uL 10^6/uL (4.18-5.33) Hgb 14.5 g/dL g/dL (12.6-16.3) Hct 42.3 % % (38.0-47.0) MCV 92.8 fL fL (81.5-99.8) MCH 31.8 pg pg (27.9-34.1) MCHC 34.3 g/dL g/dL (32.4-36.7) RDW 13.8 % % (11.5-15.2) Plt Count 199 10^3/uL 10^3/uL (150-400) MPV 11.1 fL fL (8.7-11.7) Neut % (Auto) 72.9 % % (39.3-74.2) Lymph % (Auto) 20.5 % % (15.0-45.0) [place] % (Auto) 5.7 % % (4.5-13.0) Eos % (Auto) 0.4 % L % (0.6-7.6) Baso % (Auto) 0.3 % % (0.3-1.7) Nucleat RBC Rel Count 0.0 % % (0.0-0.2) Absolute Neuts (auto) 6.88 10^3/uL H 10^3/uL (1.70-6.50) Absolute Lymphs (auto) 1.94 10^3/uL 10^3/uL (1.00-3.00) Absolute Monos (auto) 0.54 10^3/uL 10^3/uL (0.30-0.80) Absolute Eos (auto) 0.04 10^3/uL 10^3/uL (0.03-0.40) Absolute Basos (auto) 0.03 10^3/uL 10^3/uL (0.02-0.10) Absolute Nucleated RBC 0.00 10^3/uL 10^3/uL (0-0.01) Immature Gran % 0.2 % % (0.0-1.1) Immature Gran # 0.02 10^3/uL 10^3/uL (0.00-0.10) Sodium 137 mEq/L mEq/L (135-145) Potassium 3.4 mEq/L mEq/L (3.3-5.0) Chloride 95 mEq/L L mEq/L (97-110) Carbon Dioxide 30 mEq/l mEq/l (22-31) Anion Gap 12 mEq/L mEq/L (8-16) BUN 24 mg/dL H mg/dL (7-23) Creatinine 0.9 mg/dL mg/dL (0.6-1.0) Estimated GFR 59 Glucose 116 mg/dL H mg/dL (70-100) Calcium 9.8 mg/dL mg/dL (8.5-10.4) Medications Given: Discontinued Medications Sodium Chloride (Ns) 1,000 mls @ 0 mls/hr IV EDNOW ONE; Wide Open PRN Reason: Protocol Stop: 06/14/18 15:53 Last Admin: 06/14/18 16:34 Dose: 1,000 mls Departure - Departure Disposition: Home, Routine, Self-Care Clinical Impression: Multiple falls, Dementia, Atrial fibrillation Condition: Good Instructions: A-fib (Atrial Fibrillation) (ED) Additional Instructions: 1. The workup in the emergency department today demonstrates no evidence of a head injury or laboratory abnormality. 2. Please follow up with your regular physician as scheduled. 3. Please return to the ED for acute pain, fever, vomiting or other concerns.
[2018-06-14] MEDS ORDERED: NS 1,000 ML IV ONE (15:52)
[2018-06-14 16:45] LABS: PLATELET COUNT 199 10^3/uL (150-400)
--- NOTE | 2018-06-14 16:52 | CPEKG ---
Test Reason : OPEN Blood Pressure : / mmHG Vent. Rate : 082 BPM Atrial Rate : 157 BPM P-R Int : 072 ms QRS Dur : 156 ms QT Int : 455 ms P-R-T Axes : 071 -76 092 degrees QTc Int : 532 ms Afib/flut and V-paced complexes Confirmed by Lucius Platt ([id number]) on 06/14/2018 4:51:55 PM Referred By: Confirmed By:Lucius Platt
[2018-06-14 17:48] VITALS: BP 149/89
== END 2018-06-14 17:48 | disposition home or self-care (01) ==
LOC: EDUNIT#
DX: R53.1 Weakness (principal); E86.9 Volume depletion, unspecified; F03.90 Unspecified dementia, unspecified severity, without behavioral disturbance, psychotic disturbance, mood disturbance, and anxiety; I48.91 Unspecified atrial fibrillation; W19.XXXA Unspecified fall, initial encounter; Y92.129 Unspecified place in nursing home as the place of occurrence of the external cause; Z91.81 History of falling; Z79.01 Long term (current) use of anticoagulants

== ENCOUNTER 2018-10-20 15:16 | Inpatient (IN) | payer OTHER ==
[2018-10-20] MEDS ORDERED: FAMOTIDINE 20 MG/NACL 50 ML IV ONE (15:20)
[2018-10-20] MEDS ORDERED: ONDANSETRON 4 MG/2 ML VIAL IVP ONE (15:20)
[2018-10-20] MEDS ORDERED: NS 500 ML IV ONE (15:20)
[2018-10-20 15:50] LABS: PLATELET COUNT 183 10^3/uL (150-400)
--- NOTE | 2018-10-20 16:15 | EDPHY ---
H & P Time Seen by Provider: 10/20/18 15:18 HPI/ROS: HPI Nausea. Not feeling well. 88-year-old female by private vehicle with her mother. This patient reports that she woke up this morning not feeling well. She describes this as feeling nauseous and not having an appetite. She has not vomited. She denies fever. She denies cough. No myalgias or arthralgias. She denies any significant abdominal pain. She reports her last bowel movement was 2 days ago. She describes this as normal. No bloody or melenic stool. Please see review of systems for further details. ROS: Constitutional: No fever, no chills. As above. Eyes: No discharge. No changes in vision. ENT: No sore throat. No nasal congestion or rhinorrhea. Respiratory: No cough. No shortness of breath. Cardiac: No chest pain, no palpitations. Gastrointestinal: No abdominal pain, no vomiting, no diarrhea. As above. Genitourinary: No hematuria. No dysuria or increased frequency with urination. Musculoskeletal: No back pain. No neck pain. No myalgias or arthralgias. Skin: No rashes. Neurological: No headache. No focal weakness or altered sensation. Past medical history: Hypertension, hyponatremia, CVA, atrial fibrillation, pacemaker, carotid artery stenosis, osteoarthritis, cataract surgery, dementia, anemia, heart failure, RLL. Primary care physician is Dr. Cesar Cohen. Social history: Nonsmoker. She is here with her daughter who is actively involved with her care. No alcohol. She resides at the [facility]. She gets around by wheelchair. She requires assistance for transfer. Physical Exam: General Appearance: Alert, pleasant 88-year-old female, no distress. This patient is responding to questions appropriately and in full sentences. This patient appears well-hydrated and well-nourished. Head: Normocephalic atraumatic. Eyes: Pupils equal and round no pallor or injection. No lid edema, erythema or injection. ENT, Mouth: Mucous membranes are moist. The pharyngeal tissues are unremarkable. No edema or swelling. No asymmetry suggestive of abscess. No erythema or exudates. Respiratory: There are no retractions, lungs are clear to auscultation anteriorly with good air movement bilaterally. Cardiovascular: Regular rate and rhythm. No murmur appreciated. Gastrointestinal: Abdomen is soft and nontender, no masses, bowel sounds normal. No focal tenderness at McBurney's point. No Gil sign. Neurological: Motor sensory function is grossly intact. Cranial nerves are normal. Cerebellar function is intact. Skin: Warm and dry, no rashes. Musculoskeletal: Neck is supple and nontender. Extremities are symmetrical. All joints range without pain or impingement. Psychiatric: No agitation. No depression. Database: EKG: EKG time is 4:46 p.m.; EKG shows a sinus rhythm versus atrial fibrillation versus atrial flutter with underlying ventricular paced complexes, rate of 81. There are no ST-T wave changes indicative of ischemic or injury pattern. No evidence of right heart strain. Interpreted by me. Imaging: Chest x-ray AP portable; chronic cardiomegaly. No evidence of infiltrate or pneumothorax. No acute cardiopulmonary disease process noted. Interpreted by me. Procedures: Emergency department course: Triage vital signs reviewed. She is afebrile. She is hypertensive. Vital signs are otherwise normal. On reassessment at 4:15 p.m., blood pressure is now 124/97. IV was placed. She was started on IV normal saline with 500 cc to be given over the next hour. She will be given 4 mg of IV Zofran and 20 mg of IV Pepcid for nausea. EKG obtained and reviewed by myself. 5:40 p.m., the patient was re-evaluated. Her daughter is present in the room. She is currently receiving IV Rocephin for urinary tract infection. Her workup outside of her urinalysis was otherwise unremarkable. I discussed results of her workup and diagnosis with her and her daughter. The patient is fragile and her daughter does not feel comfortable with her going home. I discussed observation admission with both the patient and her daughter. They endorse. Hospitalist paged. 5:50 p.m., spoke with on-call hospitalist. Case discussed in detail. Patient accepted for admission to the hospitalist service in stable condition. Differential Diagnosis: The differential diagnosis on this patient includes but is not limited to viral syndrome, acute coronary syndrome, pneumonia, urinary tract infection. This represents a partial list of diagnoses considered. These considerations are based on history, physical exam, past history, reassessment and diagnostic testing. Smoking Status: Never smoked Constitutional: Initial Vital Signs Temperature (C) 36.9 C 10/20/18 15:24 Heart Rate 87 10/20/18 15:24 Respiratory Rate 16 10/20/18 15:24 Blood Pressure 194/112 H 10/20/18 15:24 O2 Sat (%) 95 10/20/18 15:24 O2 Delivery Mode Room Air Allergies/Adverse Reactions: escitalopram oxalate [From Lexapro] Allergy (Intermediate, Verified 10/20/18 15: 22) NAUSEA metoprolol [Metoprolol] Allergy (Intermediate, Verified 10/20/18 15:22) NAUSEA Home Medications: Medication Instructions Recorded Apixaban [Eliquis] 2.5 mg PO BID 12/31/16 Bupropion HCl [Wellbutrin Xl] 150 mg PO DAILY 12/31/16 Irbesartan/Hydrochlorothiazide 1 each PO DAILY 12/31/16 [Irbesartan-Hctz 150-12.5 mg Tb] Mirtazapine [Remeron] 60 mg PO HS 12/31/16 Nebivolol HCl [Bystolic 5 mg (*)] 5 mg PO DAILY 12/31/16 Omeprazole [Prilosec 20 mg] 20 mg PO DAILY 12/31/16 Potassium Cl [Klor-Con 20 meq (*)] 20 meq PO HS 12/31/16 Pramipexole Di-HCl [Pramipexole 0.25 mg PO DAILY 12/31/16 Dihydrochloride] Amlodipine Besylate 10/20/18 Lasix 10/20/18 Lipitor 10/20/18 Losartan Potassium 10/20/18 hydrALAZINE 10/20/18 Medical Decision Making - Diagnostics Imaging Results: Imaging Impressions Chest X-Ray 10/20/18 15:37 Impression: Chronic cardiomegaly. No evidence for cardiac decompensation. - Data Points Laboratory Results: Laboratory Results 10/20/18 15:38 10/20/18 15:38 10/20/18 10/20/18 10/20/18 16:47 16:26 16:18 WBC RBC Hgb Hct MCV MCH MCHC RDW Plt Count MPV Neut % (Auto) Lymph % (Auto) [place] % (Auto) Eos % (Auto) Baso % (Auto) Nucleat RBC Rel Count Absolute Neuts (auto) Absolute Lymphs (auto) Absolute Monos (auto) Absolute Eos (auto) Absolute Basos (auto) Absolute Nucleated RBC Immature Gran % Immature Gran # PT 14.1 SEC SEC (12.0-15.0) INR 1.07 (0.83-1.16) APTT 27.5 SEC SEC (23.0-38.0) Sodium Potassium Chloride Carbon Dioxide Anion Gap BUN Creatinine Estimated GFR Glucose Calcium Total Bilirubin Conjugated Bilirubin Unconjugated Bilirubin AST ALT Alkaline Phosphatase POC Troponin I 0.00 ng/mL ng/mL (0.00-0.08) Total Protein Albumin Lipase TSH Urine Color YELLOW Urine Appearance MODERATELY TURBID Urine pH 7.0 (5.0-7.5) Ur Specific [place] 1.009 (1.002-1.030) Urine Protein NEGATIVE (NEGATIVE) Urine Ketones TRACE H (NEGATIVE) Urine Blood NEGATIVE (NEGATIVE) Urine Nitrate POSITIVE H (NEGATIVE) Urine Bilirubin NEGATIVE (NEGATIVE) Urine Urobilinogen 2.0 EU H EU (0.2-1.0) Ur Leukocyte Esterase TRACE H (NEGATIVE) Urine RBC 10-15 /hpf H /hpf (0-3) Urine WBC 5-10 /hpf H /hpf (0-3) Ur Epithelial Cells TRACE /lpf /lpf (NONE-1+) Amorphous Sediment PRESENT /hpf /hpf (NONE-1+) Urine Bacteria 2+ /hpf H /hpf (NONE SEEN) Urine Glucose NEGATIVE (NEGATIVE) 10/20/18 10/20/18 15:38 15:38 WBC 9.41 10^3/uL 10^3/uL (3.80-9.50) RBC 4.64 10^6/uL 10^6/uL (4.18-5.33) Hgb 14.6 g/dL g/dL (12.6-16.3) Hct 43.9 % % (38.0-47.0) MCV 94.6 fL fL (81.5-99.8) MCH 31.5 pg pg (27.9-34.1) MCHC 33.3 g/dL g/dL (32.4-36.7) RDW 13.4 % % (11.5-15.2) Plt Count 183 10^3/uL 10^3/uL (150-400) MPV 10.2 fL fL (8.7-11.7) Neut % (Auto) 72.5 % % (39.3-74.2) Lymph % (Auto) 20.6 % % (15.0-45.0) [place] % (Auto) 5.7 % % (4.5-13.0) Eos % (Auto) 0.4 % L % (0.6-7.6) Baso % (Auto) 0.4 % % (0.3-1.7) Nucleat RBC Rel Count 0.0 % % (0.0-0.2) Absolute Neuts (auto) 6.81 10^3/uL H 10^3/uL (1.70-6.50) Absolute Lymphs (auto) 1.94 10^3/uL 10^3/uL (1.00-3.00) Absolute Monos (auto) 0.54 10^3/uL 10^3/uL (0.30-0.80) Absolute Eos (auto) 0.04 10^3/uL 10^3/uL (0.03-0.40) Absolute Basos (auto) 0.04 10^3/uL 10^3/uL (0.02-0.10) Absolute Nucleated RBC 0.00 10^3/uL 10^3/uL (0-0.01) Immature Gran % 0.4 % % (0.0-1.1) Immature Gran # 0.04 10^3/uL 10^3/uL (0.00-0.10) PT INR APTT Sodium 134 mEq/L L mEq/L (135-145) Potassium 4.3 mEq/L mEq/L (3.5-5.2) Chloride 101 mEq/L mEq/L (97-110) Carbon Dioxide 24 mEq/l mEq/l (22-31) Anion Gap 9 mEq/L mEq/L (6-14) BUN 11 mg/dL mg/dL (7-23) Creatinine 0.8 mg/dL mg/dL (0.6-1.0) Estimated GFR > 60 Glucose 120 mg/dL H mg/dL (70-100) Calcium 9.6 mg/dL mg/dL (8.5-10.4) Total Bilirubin 0.7 mg/dL mg/dL (0.1-1.4) Conjugated Bilirubin 0.4 mg/dL mg/dL (0.0-0.5) Unconjugated Bilirubin 0.3 mg/dL mg/dL (0.0-1.1) AST 23 IU/L IU/L (14-46) ALT 17 IU/L IU/L (9-52) Alkaline Phosphatase 80 IU/L IU/L (38-126) POC Troponin I Total Protein 8.0 g/dL g/dL (6.3-8.2) Albumin 4.6 g/dL g/dL (3.5-5.0) Lipase 42 IU/L IU/L (23-300) TSH 4.310 uIU/mL uIU/mL (0.465-4.680) Urine Color Urine Appearance Urine pH Ur Specific [place] Urine Protein Urine Ketones Urine Blood Urine Nitrate Urine Bilirubin Urine Urobilinogen Ur Leukocyte Esterase Urine RBC Urine WBC Ur Epithelial Cells Amorphous Sediment Urine Bacteria Urine Glucose Medications Given: Discontinued Medications Sodium Chloride (Ns) 500 mls @ 0 mls/hr IV EDNOW ONE; Wide Open PRN Reason: Protocol Stop: 10/20/18 15:21 Last Admin: 10/20/18 16:07 Dose: 500 mls Famotidine/Sodium Chloride (Pepcid 20 Mg (Premix)) 50 mls @ 200 mls/hr IV EDNOW ONE Stop: 10/20/18 15:34 Last Admin: 10/20/18 16:07 Dose: 50 mls Ceftriaxone Sodium 2 gm/ (Sodium Chloride) 50 mls @ 100 mls/hr IV EDNOW ONE PRN Reason: Protocol Stop: 10/20/18 17:26 Last Admin: 10/20/18 17:22 Dose: 50 mls Ondansetron HCl (Zofran) 4 mg IVP EDNOW ONE Stop: 10/20/18 15:21 Last Admin: 10/20/18 16:24 Dose: 4 mg Point of Care Test Results: Chemistry 10/20/18 16:47 POC Troponin I 0.00 ng/mL ng/mL (0.00-0.08) Departure - Departure [facility]position: [facility] Clinical Impression: Nausea, Urinary tract infection, Weakness Referrals: Cesar Cohen MD [Primary Care Provider] - As per Instructions
[2018-10-20 16:43] LABS: INR 1.07 (0.83-1.16); PROTIME(PATIENT) 14.1 SEC (12.0-15.0)
[2018-10-20] MEDS ORDERED: ACETAMINOPHEN 325 MG TAB PO PRN (19:09)
[2018-10-20] MEDS ORDERED: ONDANSETRON DISINTEGRATING 4 MG TAB PO PRN (19:09)
[2018-10-20] MEDS ORDERED: ONDANSETRON 4 MG/2 ML VIAL IVP PRN (19:09)
[2018-10-20] MEDS ORDERED: NS W/ 20 KCl/L 1,000 ML IV SCH (19:15)
--- NOTE | 2018-10-20 19:15 | PDGENHP ---
History and Physical - Chief Complaint weakness, malaise - History of Present Illness The patient is a 88-year-old female who woke up this morning not feeling well. She describes this as feeling nauseous and not having an appetite. She has not vomited. She denies fever. She denies cough. No myalgias or arthralgias. She denies any significant abdominal pain. She reports her last bowel movement was 2 days ago. She describes this as normal. No bloody or melenic stool. She was found to have a bacteruria and started on Rocephin. She is not a great historian as she has dementia. Past medical history: Hypertension, hyponatremia, CVA, atrial fibrillation, pacemaker, carotid artery stenosis, osteoarthritis, cataract surgery, dementia, anemia, heart failure, RLL. Primary care physician is Dr. Cesar Cohen. Social history: Nonsmoker. She is here with her daughter who is actively involved with her care. No alcohol. She resides at the [facility]. She gets around by wheelchair. She requires assistance for transfer. EKG shows a sinus rhythm versus atrial fibrillation versus atrial flutter with underlying ventricular paced complexes, rate of 81. There are no ST-T wave changes indicative of ischemic or injury pattern. No evidence of right heart strain. CXR: unremarkable Rocephin started in the ER History Information - Allergies/Home Medication List Allergies/Adverse Reactions: escitalopram oxalate [From Lexapro] Allergy (Intermediate, Verified 10/20/18 15: 22) NAUSEA metoprolol [Metoprolol] Allergy (Intermediate, Verified 10/20/18 15:22) NAUSEA Home Medications: Apixaban [Eliquis] 2.5 mg PO BID 12/31/16 [Last Taken Unknown] Bupropion HCl [Wellbutrin Xl] 300 mg PO DAILY 12/31/16 [Last Taken Unknown] Mirtazapine [Remeron] 60 mg PO HS 12/31/16 [Last Taken Unknown] Potassium Cl [Klor-Con 20 meq (*)] 40 meq PO DAILY 12/31/16 [Last Taken Unknown] Acetaminophen [Tylenol 325mg (*)] 325 mg PO Q4HRS PRN 10/20/18 [Last Taken Unknown] Atorvastatin Calcium [Lipitor 10 mg (*)] 10 mg PO Q2D@2100 10/20/18 [Last Taken Unknown] Cholecalciferol Vit D3 [Vitamin D3 (*)] 50,000 unit PO Q30D 10/20/18 [Last Taken 10/04/18] Cyanocobalamin [Vitamin B12 (*)] 1,000 mcg PO DAILY 10/20/18 [Last Taken Unknown ] Hydralazine HCl 25 mg PO BID 10/20/18 [Last Taken Unknown] Hydrochlorothiazide [HCTZ (*)] 25 mg PO DAILY 10/20/18 [Last Taken Unknown] Losartan Potassium 50 mg PO BID 10/20/18 [Last Taken 10/19/18] Nebivolol HCl [Bystolic] 20 mg PO DAILY 10/20/18 [Last Taken Unknown] Omeprazole Magnesium [Acid [employer]] 20 mg PO DAILY 10/20/18 [Last Taken Unknown] Pramipexole Di-HCl [Mirapex] 0.5 mg PO HS 10/20/18 [Last Taken Unknown] Propylene Glycol/Peg 400/Pf [Systane 0.3-0.4% Eye Drops] 1 each EACHEYE BID 03/31 [Last Taken Unknown] Propylene Glycol/Peg 400/Pf [Systane 0.3-0.4% Eye Drops] 1 each OP QID PRN 10/20 [Last Taken Unknown] amLODIPine BESYLATE [Norvasc 5 mg (*)] 5 mg PO BID 10/20/18 [Last Taken Unknown] I have personally reviewed and updated: medical history, social history - Social History Smoking Status: Never smoked Review of Systems Review of Systems: ROS: 10pt was reviewed & negative except for what was stated in HPI & below Physical Exam Physical Exam: Temp Pulse Resp BP Pulse Ox 36.9 C 90 18 155/98 H 94 10/20/18 15:24 10/20/18 17:20 10/20/18 17:20 10/20/18 17:20 10/20/18 17:20 Constitutional: no apparent distress Eyes: PERRL, EOMI Ears, Nose, Mouth, Throat: dry mucous membranes Cardiovascular: regular rate and rhythym, No edema Respiratory: no respiratory distress, no rales or rhonchi, clear to auscultation Gastrointestinal: normoactive bowel sounds, soft, non-tender abdomen, No tenderness Skin: warm Musculoskeletal: generalized weakness Psychiatric: interacting appropriately, not anxious Lymph, Heme, Immunologic: No petechiae Lab Data & Imaging Review 10/20/18 15:38 10/20/18 15:38 WBC 9.41 10^3/uL (3.80-9.50) 10/20/18 15:38 RBC 4.64 10^6/uL (4.18-5.33) 10/20/18 15:38 Hgb 14.6 g/dL (12.6-16.3) 10/20/18 15:38 Hct 43.9 % (38.0-47.0) 10/20/18 15:38 MCV 94.6 fL (81.5-99.8) 10/20/18 15:38 MCH 31.5 pg (27.9-34.1) 10/20/18 15:38 MCHC 33.3 g/dL (32.4-36.7) 10/20/18 15:38 RDW 13.4 % (11.5-15.2) 10/20/18 15:38 Plt Count 183 10^3/uL (150-400) 10/20/18 15:38 MPV 10.2 fL (8.7-11.7) 10/20/18 15:38 Neut % (Auto) 72.5 % (39.3-74.2) 10/20/18 15:38 Lymph % (Auto) 20.6 % (15.0-45.0) 10/20/18 15:38 [place] % (Auto) 5.7 % (4.5-13.0) 10/20/18 15:38 Eos % (Auto) 0.4 % (0.6-7.6) L 10/20/18 15:38 Baso % (Auto) 0.4 % (0.3-1.7) 10/20/18 15:38 Nucleat RBC Rel Count 0.0 % (0.0-0.2) 10/20/18 15:38 Absolute Neuts (auto) 6.81 10^3/uL (1.70-6.50) H 10/20/18 15:38 Absolute Lymphs (auto) 1.94 10^3/uL (1.00-3.00) 10/20/18 15:38 Absolute Monos (auto) 0.54 10^3/uL (0.30-0.80) 10/20/18 15:38 Absolute Eos (auto) 0.04 10^3/uL (0.03-0.40) 10/20/18 15:38 Absolute Basos (auto) 0.04 10^3/uL (0.02-0.10) 10/20/18 15:38 Absolute Nucleated RBC 0.00 10^3/uL (0-0.01) 10/20/18 15:38 Immature Gran % 0.4 % (0.0-1.1) 10/20/18 15:38 Immature Gran # 0.04 10^3/uL (0.00-0.10) 10/20/18 15:38 PT 14.1 SEC (12.0-15.0) 10/20/18 16:26 INR 1.07 (0.83-1.16) 10/20/18 16:26 APTT 27.5 SEC (23.0-38.0) 10/20/18 16:26 Sodium 134 mEq/L (135-145) L 10/20/18 15:38 Potassium 4.3 mEq/L (3.5-5.2) 10/20/18 15:38 Chloride 101 mEq/L (97-110) 10/20/18 15:38 Carbon Dioxide 24 mEq/l (22-31) 10/20/18 15:38 Anion Gap 9 mEq/L (6-14) 10/20/18 15:38 BUN 11 mg/dL (7-23) 10/20/18 15:38 Creatinine 0.8 mg/dL (0.6-1.0) 10/20/18 15:38 Estimated GFR > 60 10/20/18 15:38 Glucose 120 mg/dL (70-100) H 10/20/18 15:38 Calcium 9.6 mg/dL (8.5-10.4) 10/20/18 15:38 Total Bilirubin 0.7 mg/dL (0.1-1.4) 10/20/18 15:38 Conjugated Bilirubin 0.4 mg/dL (0.0-0.5) 10/20/18 15:38 Unconjugated Bilirubin 0.3 mg/dL (0.0-1.1) 10/20/18 15:38 AST 23 IU/L (14-46) 10/20/18 15:38 ALT 17 IU/L (9-52) 10/20/18 15:38 Alkaline Phosphatase 80 IU/L (38-126) 10/20/18 15:38 POC Troponin I 0.00 ng/mL (0.00-0.08) 10/20/18 16:47 Total Protein 8.0 g/dL (6.3-8.2) 10/20/18 15:38 Albumin 4.6 g/dL (3.5-5.0) 10/20/18 15:38 Lipase 42 IU/L (23-300) 10/20/18 15:38 TSH 4.310 uIU/mL (0.465-4.680) 10/20/18 15:38 Urine Color YELLOW 10/20/18 16:18 Urine Appearance MODERATELY TURBID 10/20/18 16:18 Urine pH 7.0 (5.0-7.5) 10/20/18 16:18 Ur Specific [place] 1.009 (1.002-1.030) 10/20/18 16:18 Urine Protein NEGATIVE (NEGATIVE) 10/20/18 16:18 Urine Ketones TRACE (NEGATIVE) H 10/20/18 16:18 Urine Blood NEGATIVE (NEGATIVE) 10/20/18 16:18 Urine Nitrate POSITIVE (NEGATIVE) H 10/20/18 16:18 Urine Bilirubin NEGATIVE (NEGATIVE) 10/20/18 16:18 Urine Urobilinogen 2.0 EU (0.2-1.0) H 10/20/18 16:18 Ur Leukocyte Esterase TRACE (NEGATIVE) H 10/20/18 16:18 Urine RBC 10-15 /hpf (0-3) H 10/20/18 16:18 Urine WBC 5-10 /hpf (0-3) H 10/20/18 16:18 Ur Epithelial Cells TRACE /lpf (NONE-1+) 10/20/18 16:18 Amorphous Sediment PRESENT /hpf (NONE-1+) 10/20/18 16:18 Urine Bacteria 2+ /hpf (NONE SEEN) H 10/20/18 16:18 Urine Glucose NEGATIVE (NEGATIVE) 10/20/18 16:18 Assessment & Plan Assessment: Generalized weakness Urinary tract infection Dehydration Hx of Afib, s/p PPM, on chronic AC Dementia HTN Plan: Admission IVF Rocephin, await cultures PT/OT appropriate home meds PT/OT Fall Risk
[2018-10-20] MEDS: hydrALAZINE 25 MG TAB PO SCH (21:00)
[2018-10-20] MEDS: amLODIPine BESYLATE 5 MG TAB PO SCH (21:01)
[2018-10-20] MEDS: LOSARTAN POTASSIUM 50 MG TAB PO SCH (21:01)
[2018-10-20] MEDS: APIXABAN 2.5 MG TAB PO SCH (21:01)
--- NOTE | 2018-10-20 21:20 | CPEKG ---
Test Reason : OPEN Blood Pressure : / mmHG Vent. Rate : 081 BPM Atrial Rate : 147 BPM P-R Int : 205 ms QRS Dur : 160 ms QT Int : 427 ms P-R-T Axes : 077 -76 108 degrees QTc Int : 496 ms Afib/flut and V-paced complexes Confirmed by Jamil Hardwick ([id number]) on 10/20/2018 9:19:31 PM Referred By: Jamil Hardwick Confirmed By:Jamil Hardwick
[2018-10-20] MEDS: PRAMIPEXOLE 1 MG TAB PO SCH (21:32)
--- NOTE | 2018-10-20 21:46 | PDMN ---
Medical Necessity Medical necessity: Pt meets IP criteria as of 10/20/2018 per and MCG M-300 ( Urinary Tract Infection); est los > 2 mn for UTI with generalized weakness, nausea, and dehydration in an elderly pt; requiring IV ABX, IVF, PT/OT, and management of chronic conditions including dementia, afib, CVA, pacemaker, carotid artery stenosis, HTN, anemia and heart failure.
[2018-10-21 08:02] LABS: PLATELET COUNT 157 10^3/uL (150-400)
[2018-10-21] MEDS: buPROPion XL 150 MG TAB PO SCH (09:41)
[2018-10-21] MEDS: LOSARTAN POTASSIUM 50 MG TAB PO SCH ×2 (09:42→21:39)
[2018-10-21] MEDS: APIXABAN 2.5 MG TAB PO SCH ×2 (09:42→21:37)
[2018-10-21] MEDS: MIRTAZAPINE 30 MG TAB PO SCH (09:42)
[2018-10-21] MEDS: amLODIPine BESYLATE 5 MG TAB PO SCH ×2 (09:42→21:38)
[2018-10-21] MEDS: PANTOPRAZOLE SODIUM 40 MG TAB PO SCH (09:42)
[2018-10-21] MEDS: NEBIVOLOL HCL 5 MG TAB PO SCH (09:42)
[2018-10-21] MEDS: HYDROCHLOROTHIAZIDE 25 MG TAB PO SCH (09:43)
[2018-10-21] MEDS: hydrALAZINE 25 MG TAB PO SCH ×2 (09:43→21:38)
[2018-10-21] MEDS: POTASSIUM CL 20 MEQ TAB PO SCH (09:43)
[2018-10-21] MEDS ORDERED: PROTOCOL MAGNESIUM 1 DOSE IV PRN (14:23)
[2018-10-21] MEDS ORDERED: TIOTROPIUM INHALER 18 MCG/DOSE 5 DOSE/MDI IH SCH (15:00)
[2018-10-21] MEDS ORDERED: ALBUTEROL 3 ML DEYVIAL IH SCH (16:00)
--- NOTE | 2018-10-21 16:42 | ASMTCMCOM ---
CM Note CM Note Notes: 10/21/2018 Case Management Note Reviewed chart. Pt admitted for UTI and weakness with h/o dementia. Confirmed with daughter Carley [phone] that pt resides at [facility] in memory care. PT austinal cleared pt for return to [place] with no skiled needs. Faxed updates to [facility]. Case Management d/c poc: return to [facility]. Case Management to follow. Date Signed: 10/21/2018 04:41 PM Electronically Signed By:Gaby Gabriel RN
--- NOTE | 2018-10-21 20:48 | HOSPPROG ---
Hospitalist Progress Note Assessment/Plan: * UTI -IV Rocephin pending culture * Dementia - advanced * Afib s/p PCM -Eliquis * HTN -losartan, bystolic, norvasc, HCTZ, hydralazine Subjective: Agitated today, pulled out IV Objective: Vital Signs Temp Pulse Resp BP Pulse Ox 36.4 C 81 14 138/84 H 92 10/21/18 15:56 10/21/18 15:56 10/21/18 15:56 10/21/18 15:56 10/21/18 15:56 Laboratory Results 10/21/18 07:50 10/21/18 07:50 10/20/18 10/21/18 10/22/18 05:59 05:59 05:59 Intake Total 925 1050 Output Total 1125 150 Balance -200 900 PT 14.1 SEC (12.0-15.0) 10/20/18 16:26 INR 1.07 (0.83-1.16) 10/20/18 16:26 EKG viewed,my personal interpretation is - paced rhythm CXR - negative - Physical Exam Constitutional: no apparent distress, appears nourished, not in pain Cardiovascular: regular rate and rhythym, no murmur, rub, or gallop Respiratory: no respiratory distress, no rales or rhonchi, clear to auscultation Gastrointestinal: normoactive bowel sounds, soft, non-tender abdomen, no palpable masses Skin: no rashes or abrasions, no fluctuance, no induration Neurologic: No AAOx3 Psychiatric: encephalopathic, agitated, poor insight, poor judgement, poor memory, No interacting appropriately ICD10 Worksheet Patient Problems: Problems Problem Status Onset Afib - Atrial fibrillation Active Renal failure Acute Generalized weakness Acute Failure to thrive Acute Multiple falls Acute Hypertensive urgency Acute Nausea Acute Urinary tract infection Acute
[2018-10-21] MEDS ORDERED: ATORVASTATIN CALCIUM 10 MG TAB PO SCH (21:00)
[2018-10-21] MEDS: PRAMIPEXOLE 1 MG TAB PO SCH (21:38)
[2018-10-21] MEDS: PEG EACHEYE SCH (22:29)
[2018-10-21] MEDS: PROPYLENE GLYCOL EACHEYE SCH (22:29)
[2018-10-22 08:07] VITALS: BP 140/83
[2018-10-22] MEDS: LOSARTAN POTASSIUM 50 MG TAB PO SCH (08:47)
[2018-10-22] MEDS: APIXABAN 2.5 MG TAB PO SCH (08:47)
[2018-10-22] MEDS: POTASSIUM CL 20 MEQ TAB PO SCH (08:47)
[2018-10-22] MEDS: buPROPion XL 150 MG TAB PO SCH (08:47)
[2018-10-22] MEDS: HYDROCHLOROTHIAZIDE 25 MG TAB PO SCH (08:48)
[2018-10-22] MEDS: NEBIVOLOL HCL 5 MG TAB PO SCH (08:48)
[2018-10-22] MEDS: amLODIPine BESYLATE 5 MG TAB PO SCH (08:48)
[2018-10-22] MEDS: MIRTAZAPINE 30 MG TAB PO SCH (08:48)
[2018-10-22] MEDS: PANTOPRAZOLE SODIUM 40 MG TAB PO SCH (08:48)
[2018-10-22] MEDS: hydrALAZINE 25 MG TAB PO SCH (08:49)
[2018-10-22] MEDS: PEG EACHEYE SCH (08:57)
[2018-10-22] MEDS: PROPYLENE GLYCOL EACHEYE SCH (08:57)
[2018-10-22] MEDS ORDERED: CYANO/VITAMIN B12 1000 MCG TAB PO SCH (09:00)
[2018-10-22] MEDS ORDERED: MAGNESIUM SULF 1 GM/DEXTROSE 100 ML IV ONE (11:06)
--- NOTE | 2018-10-22 13:41 | PDIAF ---
- Diagnosis Diagnosis: UTI - Medication Management Discharge Medications: electronically signed and located in the Home Medication List. - Orders Services needed: Home Care, Registered Nurse, Physical Therapy, Occupational Therapy Home Care Face to Face: I certify that this patient was under my care and that I had the required [id number] encounter meeting the encounter requirements on the discharge day. My findings support the fact that the patient is homebound as defined in Home Care Face to Face Continued: CMS Chapter 7 Medicare Benefits Manual 30.1.1 , The condition of the patient is such that there exists a normal inability to leave home and consequently, leaving home would require a considerable and taxing effort. Diet Recommendation: no restrictions on diet - Follow Up Care Current Providers and Referrals: Cesar Cohen MD [Primary Care Provider] - As per Instructions
--- NOTE | 2018-10-22 14:54 | ASMTLACE ---
LACE Length of stay for Answers: 2 days current admission Acuity / Level of Answers: Yes Care: Did the patient have an inpatient admission? Comorbidities - select Answers: Cerebrovascular disease all that apply (CVA, TIA, aneurysms, vasc ular dementia) Dementia Other Notes: HTN; AFib # of Emergency department Answers: 1-2 visits in the last 6 months Score: 11 Date Signed: 10/22/2018 02:53 PM Electronically Signed By:DEWEY Ortega
--- NOTE | 2018-10-22 14:57 | ASMTDCNOTE ---
Case Management Discharge Discharge Order Complete? Answers: Yes Patient to Obtain Answers: Other Notes: [facility] Medications Transportation Arranged Answers: Family/Friends Faxed Final Orders Answers: Yes Family Notified Answers: Yes Discharge Comments Notes: Pt is discharging back to [facility] today. Spoke with nurse at [facility] and she stated it was okay for pt to return. Referral for home care sent to [facility] - pt has used in the past. Referrals for [facility] and [facility] sent via [facility]. Daughter is transporting. Date Signed: 10/22/2018 02:56 PM Electronically Signed By:DEWEY Ortega
--- NOTE | 2018-10-22 18:31 | GDS ---
[f rep st] DISCHARGE SUMMARY DISCHARGE DIAGNOSES: 1. Urinary tract infection. 2. Dementia. 3. Atrial fibrillation, status post pacemaker. 4. Hypertension. HISTORY: This patient is an 88-year-old female, who presented with failure to thrive. She was nause ated. She was unable to care for herself at her assisted living. She presented to the hospital and was diagnosed with a urinary tract infection. She received 2 doses of IV Rocephin. Urine culture wa s polymicrobial. I think she can transition to oral Keflex. She returned back to baseline and was a ble to discharge back to assisted living. DISCHARGE MEDICATIONS: Please see computerized record for full detailed list. New medications: Keflex 500 mg p.o. three times daily for 5 days. ADDITIONAL DISCHARGE INSTRUCTIONS: 1. Home health, PT, OT, VNS arranged. 2. Follow up with primary care. TIME SPENT: Greater than 30 minutes' time spent arranging this discharge. Patient was seen and exam ined by me on the day of discharge. /[id number]/MODL
== END 2018-10-22 16:01 | disposition home health service (06) | DRG 690 ==
LOC: OBSVTOIN 19:08 → F3N 20:10
PROVIDERS: ADMIT Family Medicine; ATTEND Internal Medicine
DX: N39.0 Urinary tract infection, site not specified (principal); B96.89 Other specified bacterial agents as the cause of diseases classified elsewhere; E86.0 Dehydration; R53.1 Weakness; F03.90 Unspecified dementia, unspecified severity, without behavioral disturbance, psychotic disturbance, mood disturbance, and anxiety; I11.0 Hypertensive heart disease with heart failure; I50.9 Heart failure, unspecified; I48.91 Unspecified atrial fibrillation; Z79.01 Long term (current) use of anticoagulants; Z95.0 Presence of cardiac pacemaker; I65.29 Occlusion and stenosis of unspecified carotid artery; M19.91 Primary osteoarthritis, unspecified site; Z86.73 Personal history of transient ischemic attack (TIA), and cerebral infarction without residual deficits
CPT/HCPCS: 84484-ER; 96365; 97161-GP; 97165-GO; J0696; J2405; J3475

== ENCOUNTER 2019-02-11 21:44 | Emergency (ER) | payer OTHER | END 2019-02-11 23:44 | disposition home or self-care (01) ==